=== PATIENT | female | born 1980 | race Caucasian/White ===

== ENCOUNTER → 2017-09-18 | Outpatient (CLI) | payer OTHER ==
[~2017-09-18] MED LIST: AMOX/CLAV POT 81 TAB PO; CEPHALEXIN500 M1 PO; DOXYCYCLINE100 M3 PO; NKHM; ZOFRAN4 MG PO
== END | disposition home or self-care (01) ==
LOC: RAD 11:13
DX: M79.672 Pain in left foot (principal); M79.89 Other specified soft tissue disorders

== ENCOUNTER 2017-10-21 22:57 | Emergency (ER) | payer OTHER ==
[~2017-10-21] VITALS: Ht 165.1 cm; Wt 77.1 kg
[2017-10-21] MEDS ORDERED: TRAMADOL HCL50 MG PO (23:45)
== END 2017-10-21 23:53 | disposition home or self-care (01) ==
LOC: ED 22:57
DX: S02.611A Fracture of condylar process of right mandible, initial encounter for closed fracture (principal); S01.81XA Laceration without foreign body of other part of head, initial encounter; Z88.6 Allergy status to analgesic agent; Z79.899 Other long term (current) drug therapy; W18.09XA Striking against other object with subsequent fall, initial encounter; Y93.89 Activity, other specified; Y92.89 Other specified places as the place of occurrence of the external cause; Y99.8 Other external cause status